=== PATIENT | female | born 1980 ===

== ENCOUNTER 2017-07-16 09:27 | Emergency (ER) | payer SELFPAY ==
[2017-07-16 09:54] VITALS: BP 122/73; PULSE 80; RESP 20; TEMP 97; O2SAT 98
--- NOTE | 2017-07-16 10:53 | ED PDOC ---
HPI: General Adult Time Seen by Provider: 07/16/17 10:50 Chief Complaint (Nursing): Breast Problem Chief Complaint (Provider): breast pain History Per: Patient (37 y/o female here with left breast pain noted x few days by nipple extending to left side of chest wall/back. Pain worse with movement. Patient is not . Has had ultrasound 5 months ago for similar pain. Has h/o abscess and is concerned. Denies any fevers/chills.) Past Medical History Reviewed: Historical Data, Nursing Documentation, Vital Signs Vital Signs: Last Vital Signs Temp 97 F L 07/16/17 09:53 Pulse 80 07/16/17 09:53 Resp 20 07/16/17 09:53 BP 122/73 07/16/17 09:53 Pulse Ox 98 07/16/17 09:53 - Medical History PMH: Denies: Chronic Kidney Disease - Family History Family History: States: No Known Family Hx - Home Medications Home Medications: Ambulatory Orders Medication Instructions Recorded Naproxen 1 tab PO BID PRN #14 tab 07/16/17 - Allergies Allergies/Adverse Reactions: Allergies Allergy/AdvReac Type Severity Reaction Status Date / Time No Known Allergies Allergy Verified 07/16/17 09:52 Review of Systems ROS Statement: Except As Marked, All Systems Reviewed And Found Negative Skin: Positive for: Other (breast pain) Physical Exam - Reviewed Nursing Documentation Reviewed: Yes Vital Signs Reviewed: Yes - Physical Exam Appears: Positive for: Well, Non-toxic, No Acute Distress Head Exam: Positive for: ATRAUMATIC, NORMAL INSPECTION, NORMOCEPHALIC Skin: Positive for: Normal Color, Warm, DRY Eye Exam: Positive for: EOMI, Normal appearance, PERRL ENT: Positive for: Normal ENT Inspection Neck: Positive for: Normal, Painless ROM Cardiovascular/Chest: Positive for: Regular Rate, Rhythm, Other (Breast: no obvious massess noted. No erythema/signs of cellulitis.). Negative for: Chest Non Tender (tenderness elicited along left chest wall by lower ribcage/lower thoracic region. ) Respiratory: Positive for: Normal Breath Sounds, Other (LUNGS CTAB) Gastrointestinal/Abdominal: Positive for: Normal Exam, Bowel Sounds, Soft Back: Positive for: Normal Inspection Extremity: Positive for: Normal ROM Neurologic/Psych: Positive for: Alert, Oriented - ECG O2 Sat by Pulse Oximetry: 98 - Progress ED Course And Treament: d/w patient importance of f/u for breast ultrasound for persistent pain. Disposition - Clinical Impression Clinical Impression: Pain of breast, Chest wall tenderness - Patient ED Disposition Is Patient to be Admitted: No - Disposition Disposition: Routine/Home Disposition Time: 10:53 Condition: FAIR Prescriptions: Naproxen 1 tab PO BID PRN #14 tab PRN Reason: Pain, Moderate (4-7) Instructions: Chest Wall Pain (ED) Forms: [employer] (S[place] Leonean), [employer] (Italian) Print Language: PORTUGUESE
== END 2017-07-16 11:14 | disposition home or self-care (01) ==
LOC: H.ER 09:27
DX: N64.4 Mastodynia (principal)

== ENCOUNTER 2018-11-23 09:29 | Emergency (ER) | payer SELFPAY ==
[2018-11-23 09:36] VITALS: RESP 16; BMI 28.7
--- NOTE | 2018-11-23 10:32 | ED PDOC ---
HPI: Female Pain Time Seen by Provider: 11/23/18 10:04 Chief Complaint (Nursing): Female Genitourinary Chief Complaint (Provider): Female Genitourinary History Per: Patient History/Exam Limitations: no limitations Onset/Duration Of Symptoms: Days Current Symptoms Are (Timing): Still Present Associated Symptoms: Back Pain, Urinary Symptoms. denies: Fever Additional Complaint(s): 38 year old female with no past medical history who is presenting to the ED for evaluation of constant right lower back pain associated with dysuria, frequency, and hematuria ongoing for 2 days. She denies any abdominal pain or fevers. Patient offers no other medical complaints at this time. PMD: none provided Past Medical History Reviewed: Historical Data, Nursing Documentation, Vital Signs Vital Signs: Last Vital Signs Temp 97.6 F 11/23/18 09:35 Pulse 87 11/23/18 09:35 Resp 16 11/23/18 09:35 BP 112/69 11/23/18 09:35 Pulse Ox 98 11/23/18 09:35 - Medical History PMH: No Chronic Diseases Denies: Chronic Kidney Disease - Surgical History Surgical History: No Surg Hx - Family History Family History: States: Unknown Family Hx - Social History Current smoker - smoking cessation education provided: No Alcohol: None Drugs: Denies - Home Medications Home Medications: Ambulatory Orders Medication Instructions Recorded Naproxen 1 tab PO BID PRN #14 tab 07/16/17 Nitrofurantoin Macrocrystals 100 mg PO BID #9 cap 11/23/18 [Macrobid] Phenazopyridine [Pyridium] 200 mg PO TID PRN #6 tab 11/23/18 - Allergies Allergies/Adverse Reactions: Allergies Allergy/AdvReac Type Severity Reaction Status Date / Time No Known Allergies Allergy Verified 07/16/17 09:52 Review of Systems ROS Statement: Except As Marked, All Systems Reviewed And Found Negative Constitutional: Negative for: Fever Gastrointestinal: Negative for: Abdominal Pain Genitourinary Female: Positive for: Dysuria, Frequency, Hematuria Musculoskeletal: Positive for: Back Pain Physical Exam - Reviewed Nursing Documentation Reviewed: Yes Vital Signs Reviewed: Yes - Physical Exam Appears: Positive for: Non-toxic, No Acute Distress Head Exam: Positive for: ATRAUMATIC, NORMAL INSPECTION, NORMOCEPHALIC Skin: Positive for: Normal Color, Warm, DRY Neck: Positive for: Normal, Painless ROM Cardiovascular/Chest: Positive for: Regular Rate, Rhythm. Negative for: Murmur Respiratory: Positive for: Normal Breath Sounds. Negative for: Respiratory Distress Gastrointestinal/Abdominal: Positive for: Soft, Tenderness (mild suprapubic tenderness ) Back: Positive for: Normal Inspection. Negative for: L CVA Tenderness, R CVA Tenderness Extremity: Positive for: Normal ROM. Negative for: Deformity, Swelling Neurologic/Psych: Positive for: Alert, Oriented. Negative for: Motor/Sensory Deficits - ECG O2 Sat by Pulse Oximetry: 98 (RA) Pulse Ox Interpretation: Normal Medical Decision Making Medical Decision Making: Time: 10:04 Plan: --ED urine dipstick --ED urine --Urinalysis Scribe Attestation: Documented by Haleihg Uribe, acting as a scribe for Zoila Lechuga MD. Provider Scribe Attestation: All medical record entries made by the Scribe were at my direction and personally dictated by me. I have reviewed the chart and agree that the record accurately reflects my personal performance of the history, physical exam, medical decision making, and the department course for this patient. I have also personally directed, reviewed, and agree with the discharge instructions and disposition. Disposition - Clinical Impression Clinical Impression: Urinary tract infection - Disposition Referrals: [facility] [Outside] Disposition: Routine/Home Disposition Time: 12:27 Condition: STABLE Prescriptions: Nitrofurantoin Macrocrystals [Macrobid] 100 mg PO BID #9 cap Phenazopyridine [Pyridium] 200 mg PO TID PRN #6 tab PRN Reason: Bladder Spasm Instructions: Urinary Tract Infections in Adults Forms: [employer] (Norwegian)
[2018-11-23 12:08] LABS: URINE BILIRUBIN NEGATIVE (NEGATIVE); URINE BLOOD SMALL (NEGATIVE); URINE CLARITY SLIGHT-CLOUDY (Clear); URINE COLOR YELLOW (YELLOW); URINE GLUCOSE (UA) NEGATIVE (NEGATIVE)
[2018-11-23 12:09] LABS: SQUAMOUS EPITHIAL 6 /hpf (0-5); URINE LEUKOCYTE ESTERASE LARGE Leu/uL (Negative); URINE PROTEIN NEGATIVE (NEGATIVE); URINE UROBILINOGEN 0.2 mg/dL (0.2-1.0)
[2018-11-23 12:39] VITALS: BP 115/56; PULSE 68; TEMP 97.8
[2018-11-28 08:09] VITALS: O2SAT 98
== END 2018-11-23 12:37 | disposition home or self-care (01) ==
LOC: H.ER 09:29
DX: N39.0 Urinary tract infection, site not specified (principal)